=== PATIENT | female | born 1990 | race Caucasian/White ===

== ENCOUNTER 2017-01-15 11:48 | Emergency (ER) | payer MEDICAID, OTHER ==
[2017-01-15 12:07] VITALS: BMI 27.4
[2017-01-15 12:08] VITALS: O2SAT 100
[2017-01-15] MEDS ORDERED: Sodium Chloride 0.9% 1,000 ML IV ONE (12:19)
--- NOTE | 2017-01-15 12:21 | C.PDOC ---
History Of Present Illness 26 y/o female presents to the ED complaining of lower abdominal pain since yesterday. She also reports associated nausea and vomiting but denies fever, chills, diarrhea, or other complaints. Time Seen by Provider: 01/15/17 12:18 Chief Complaint (Nursing): Abdominal Pain History Per: Patient History/Exam Limitations: no limitations Onset/Duration Of Symptoms: Days (1), Gradual, Persistent Current Symptoms Are (Timing): Still Present Location Of Pain/Discomfort: Other (lower abdomen) Radiation Of Pain To:: None Associated Symptoms: Nausea, Vomiting Recent travel outside of the [place]: No Past Medical History Reviewed: Historical Data, Nursing Documentation, Vital Signs Vital Signs: Last Vital Signs Temp 98.4 F 01/15/17 12:07 Pulse 83 01/15/17 12:07 Resp 20 01/15/17 12:07 BP 113/79 01/15/17 12:07 Pulse Ox 100 01/15/17 15:20 - Medical History PMH: Arthritis, HTN, Hypothyroidism Surgical History: Cholecystectomy, Other Surgeries: tubal ligation Family History: States: No Known Family Hx - Social History Hx Tobacco Use: No Hx Alcohol Use: Yes Hx Substance Use: No - Immunization History Hx Tetanus Toxoid Vaccination: No Hx Influenza Vaccination: Yes Hx Pneumococcal Vaccination: No Review Of Systems Except As Marked, All Systems Reviewed And Found Negative. Constitutional: Negative for: Fever, Chills Gastrointestinal: Positive for: Nausea, Vomiting, Abdominal Pain (lower). Negative for: Diarrhea Genitourinary: Negative for: Dysuria, Vaginal Bleeding Physical Exam - Physical Exam Appears: Non-toxic, No Acute Distress Skin: Normal Color, Warm, Dry Head: Atraumatic, Normacephalic Eye(s): bilateral: Normal Inspection, PERRL Oral Mucosa: Moist Neck: Normal ROM, Supple Chest: Symmetrical Cardiovascular: Rhythm Regular Respiratory: Normal Breath Sounds, No Rales, No Rhonchi, No Wheezing Gastrointestinal/Abdominal: Soft, Tenderness (suprapubic), No Guarding, No Rebound Back: Normal Inspection, No CVA Tenderness Extremity: Normal ROM Neurological/Psych: Oriented x3, Normal Speech, Normal Cognition Gait: Steady ED Course And Treatment - Laboratory Results Result Diagrams: 01/15/17 12:43 01/15/17 12:43 Lab Interpretation: Normal Urine POC: Negative O2 Sat by Pulse Oximetry: 100 (ra) Pulse Ox Interpretation: Normal - CT Scan/US No standard instances Other Rad Studies (CT/US): Read By Radiologist, Radiology Report Reviewed CT/US Interpretation: FINDINGS: UTERUS: Measures 6.8 x 3.5 x 4.1 cm. Retroverted, normal in size and appearance. No fibroid or other mass lesion seen. ENDOMETRIUM: Measures 10 mm in diameter. Unremarkable. CERVIX: No cervical abnormality identified. RIGHT OVARY: Measures 3.9 x 2.3 x 3.0 cm. No solid mass. Normal flow. There is a 2.6 x 1.4 x 2.5 cm cyst with internal echoes without central flow on color Doppler imaging. LEFT OVARY: Measures 3.1 x 1.5 x 2.4 cm. No solid mass. Normal flow. FREE FLUID: There is small amount of fluid in the pelvis. OTHER FINDINGS: None. IMPRESSION: 1. 2.6 x 1.4 x 2.5 cm presumable hemorrhagic cyst in the right ovary. 2. Small amount of free fluid in the pelvis. 3. Retroverted uterus. Progress Note: Treated with IVF NSS and toradol. On re-evaluation abdomen soft , mild tenderness Reassessment Condition: Improved Medical Decision Making Medical Decision Making: Plan: * Blood Work * Urinalysis * U-Preg * Toradol IVP, IV Fluids Disposition Counseled Patient/Family Regarding: Studies Performed, Diagnosis, Need For Followup, Rx Given - Disposition Referrals: [facility] [Outside] [facility] [Outside] Disposition: HOME/ ROUTINE Disposition Time: 15:30 Condition: STABLE Additional Instructions: Return to ED if any increase symptoms Prescriptions: Naproxen [Naprosyn] 1 tab PO BID PRN #25 tab PRN Reason: Pain Instructions: Abdominal Pain (ED), Ovarian Cyst (ED) - POA Present On Arrival: None - Clinical Impression Clinical Impression: Abdominal pain, Ovarian cyst - PA / PORTRAIT STUDIO PHOTOGRAPHER / Resident Statement MD/DO has reviewed & agrees with the documentation as recorded. - Scribe Statement The provider has reviewed the documentation as recorded by the Scribe (Leonora Hoffman) All medical record entries made by the Scribe were at my direction and personally dictated by me. I have reviewed the chart and agree that the record accurately reflects my personal performance of the history, physical exam, medical decision making, and the department course for this patient. I have also personally directed, reviewed, and agree with the discharge instructions and disposition.
[2017-01-15] MEDS ORDERED: Sodium Chloride 0.9% 1,000 ML ONE (12:32)
[2017-01-15 12:46] LABS: BASO % 0.7 % (0.0-2.0); EOS % 1.1 % (0.0-4.0); HEMATOCRIT 38.9 % (34.0-47.0); LYMPH # 2.2 K/uL (1.0-4.3); MEAN CELL VOLUME 88.6 fL (81.0-99.0); MEAN CORPUSCULAR HGB CONC 32.8 g/dL (33.0-37.0); MEAN PLATELET VOLUME 8.5 fL (7.2-11.7); MONO # 0.6 K/uL (0.0-0.8); MONO % 13.6 % (0.0-10.0); RED CELL DISTRIBUTION WIDTH 12.8 % (11.5-14.5); WHITE BLOOD COUNT 4.6 K/uL (4.8-10.8)
[2017-01-15 12:53] LABS: CHLORIDE 103 mmol/L (98-107)
[2017-01-15 12:54] LABS: POTASSIUM 3.6 mmol/L (3.6-5.2); SODIUM 138 mmol/L (132-148)
[2017-01-15 12:57] LABS: ALB/GLOB RATIO 1.1 (1.0-2.1); ALKALINE PHOSPHATASE 79 U/L (38-126); ALT/SGPT 49 U/L (9-52); AST/SGOT 38 U/L (14-36); BILIRUBIN,TOTAL 0.3 mg/dL (0.2-1.3); BLOOD UREA NITROGEN 10 mg/dL (7-17); CALCIUM 9.6 mg/dl (8.6-10.4); CARBON DIOXIDE 23 mmol/L (22-30); GFR AFRICAN-AMERICAN > 60; GLUCOSE,RANDOM 85 mg/dL (65-105); TOTAL PROTEIN 8.6 g/dL (6.3-8.3)
[2017-01-15 12:57] LABS: URINE BILIRUBIN NEGATIVE (NEGATIVE); URINE BLOOD NEGATIVE (NEGATIVE); URINE GLUCOSE (UA) NORMAL (Normal); URINE KETONE NEGATIVE (NEGATIVE); URINE LEUKOCYTE ESTERASE NEG Leu/uL (Negative); URINE PROTEIN NEGATIVE (NEGATIVE); URINE UROBILINOGEN NORMAL mg/dL (0.2-1.0)
[2017-01-15 12:58] LABS: URINE COLOR YELLOW (YELLOW)
--- NOTE | 2017-01-15 15:12 | US ---
HISTORY: Abdominal pain COMPARISON: None available. TECHNIQUE: Transabdominal and transvaginal pelvic ultrasound was performed. FINDINGS: UTERUS: Measures 6.8 x 3.5 x 4.1 cm. Retroverted, normal in size and appearance. No fibroid or other mass lesion seen. ENDOMETRIUM: Measures 10 mm in diameter. Unremarkable. CERVIX: No cervical abnormality identified. RIGHT OVARY: Measures 3.9 x 2.3 x 3.0 cm. No solid mass. Normal flow. There is a 2.6 x 1.4 x 2.5 cm cyst with internal echoes without central flow on color Doppler imaging. LEFT OVARY: Measures 3.1 x 1.5 x 2.4 cm. No solid mass. Normal flow. FREE FLUID: There is small amount of fluid in the pelvis. OTHER FINDINGS: None. IMPRESSION: 1. 2.6 x 1.4 x 2.5 cm presumable hemorrhagic cyst in the right ovary. 2. Small amount of free fluid in the pelvis. 3. Retroverted uterus.
[2017-01-15 15:31] VITALS: BP 109/71; PULSE 78; RESP 18; TEMP 98.2
== END 2017-01-15 15:40 | disposition home or self-care (01) ==
LOC: C.ER 11:48
DX: N83.201 Unspecified ovarian cyst, right side (principal); R10.30 Lower abdominal pain, unspecified
CPT/HCPCS: 76830; 76856; 80053; 81001; 83690; 84703; 85025; 96361; 96374; 99284; J1885; J7040

== ENCOUNTER 2018-06-08 10:14 | Emergency (ER) | payer MEDICAID ==
[2018-06-08 10:14] VITALS: BMI 27.4
[2018-06-08 10:50] VITALS: TEMP 98.4
--- NOTE | 2018-06-08 11:26 | C.PDOC ---
Time Seen by Provider: 06/08/18 11:09 Chief Complaint (Nursing): Back Pain Past Medical History Vital Signs: Last Vital Signs Temp 98.4 F 06/08/18 10:35 Pulse 102 H 06/08/18 10:35 Resp 18 06/08/18 10:35 BP 122/88 06/08/18 10:35 Pulse Ox 100 06/08/18 10:35 - Medical History PMH: Arthritis, HTN, Hypothyroidism Surgical History: Cholecystectomy, Family History: States: Unknown Family Hx - Social History Hx Tobacco Use: No Hx Alcohol Use: Yes Hx Substance Use: No - Immunization History Hx Tetanus Toxoid Vaccination: No Hx Influenza Vaccination: Yes Hx Pneumococcal Vaccination: No ED Course And Treatment O2 Sat by Pulse Oximetry: 100 Disposition - Disposition Forms: [employer] (Sami)
--- NOTE | 2018-06-08 11:27 | C.PDOC ---
History Of Present Illness 27 year old female presents to the ED c/o new onset right lower back and leg pain for the past 1-2 weeks. Patient is s/p lumbar surgery a month ago at [facility]. Patient states she began feeling burning over the tip of the toes and the foot. Patient has chronic right leg pain that has been unchanged from pro op. Patient reports taking Naproxen for pain and rarely uses the oxycodene. Patient denies weakness, numbness, leg swelling, back pain. Time Seen by Provider: 06/08/18 11:09 Chief Complaint (Nursing): Back Pain History Per: Patient History/Exam Limitations: no limitations Onset/Duration Of Symptoms: Days Current Symptoms Are (Timing): Still Present Quality Of Discomfort: "Pain" Previous Symptoms: Back Pain, Prior Surgery Recent travel outside of the [place]: No Additional History Per: Patient Past Medical History Reviewed: Historical Data, Nursing Documentation, Vital Signs Vital Signs: Last Vital Signs Temp 98.4 F 06/08/18 10:35 Pulse 102 H 06/08/18 10:35 Resp 18 06/08/18 10:35 BP 122/88 06/08/18 10:35 Pulse Ox 100 06/08/18 12:16 - Medical History PMH: Arthritis, HTN, Hypothyroidism Surgical History: Cholecystectomy, Family History: States: Unknown Family Hx - Social History Hx Tobacco Use: No Hx Alcohol Use: Yes Hx Substance Use: No - Immunization History Hx Tetanus Toxoid Vaccination: No Hx Influenza Vaccination: Yes Hx Pneumococcal Vaccination: No Review Of Systems Constitutional: Negative for: Fever, Chills Cardiovascular: Negative for: Chest Pain, Palpitations Respiratory: Negative for: Cough, Shortness of Breath Gastrointestinal: Negative for: Nausea, Vomiting, Abdominal Pain Musculoskeletal: Positive for: Back Pain, Leg Pain Skin: Negative for: Rash Neurological: Negative for: Weakness, Numbness Physical Exam - Physical Exam Appears: Non-toxic, No Acute Distress Skin: Normal Color, Warm, Dry Head: Atraumatic, Normacephalic Eye(s): bilateral: Normal Inspection Neck: Normal ROM, Supple Chest: Symmetrical Cardiovascular: Rhythm Regular Respiratory: Normal Breath Sounds, No Rales, No Rhonchi, No Wheezing Extremity: Normal ROM, No Tenderness, Capillary Refill (< 2 seconds), No Swelling Pulses: Left Dorsalis Pedis: Normal, Right Dorsalis Pedis: Normal Neurological/Psych: Oriented x3, Normal Speech, Normal Motor, No Normal Sensation (right leg mild decrease sensation at top of toes and distal aspect of foot. Mid foot and ankle normal sensation) Gait: Steady ED Course And Treatment O2 Sat by Pulse Oximetry: 100 (ON RA) Pulse Ox Interpretation: Normal Progress - Re-Evaluation Re-evaluation Note: 06/08/18 11:17 D/W OFFICE DR JOSÉ MIGUEL SOLIS @ [facility]. PER MATHEMATICAL STATISTICIAN, PT STATED BURNING AND SWELLING, CONCERN FOR POSSIBLE DVT. PT DENIES GEN LEG SWELLING. PT ADVISED NEEDS NEURO FU, POSSIBLE MRI. PT REQUESTING VENOUS DUPLEX Medical Decision Making Medical Decision Making: Plan: * Decadron 12 mg PO * Neurontin 300 mg PO * Venous Duplex Scan Disposition Counseled Patient/Family Regarding: Studies Performed, Diagnosis, Need For Followup, Rx Given - Disposition Referrals: [facility] [Other] Disposition: HOME/ ROUTINE Disposition Time: 12:32 Condition: IMPROVED Prescriptions: Gabapentin [Neurontin] 300 mg PO TID #30 cap Instructions: Paresthesias (DC) Forms: [employer] (Yi) - Clinical Impression Clinical Impression: Paresthesia - Scribe Statement The provider has reviewed the documentation as recorded by the Scribe Tong Bradford All medical record entries made by the Scribe were at my direction and personally dictated by me. I have reviewed the chart and agree that the record accurately reflects my personal performance of the history, physical exam, medical decision making, and the department course for this patient. I have also personally directed, reviewed, and agree with the discharge instructions and disposition.
[2018-06-08 12:37] VITALS: BP 136/84; PULSE 78; RESP 16; O2SAT 98
--- NOTE | 2018-06-09 08:59 | VASCLAB ---
Date of service: 06/08/2018 PROCEDURE: Right Lower Extremity Venous Duplex Exam. HISTORY: PAIN, SWELLING PRIORS: None. TECHNIQUE: Right common femoral, femoral, popliteal and posterior tibial, peroneal and great saphenous veins were evaluated. Flow was assessed with color Doppler, compressibility, assessment of phasic flow and augmentation response. Report prepared by JOSR Flanagan FINDINGS: RIGHT: 1. Common Femoral Vein: 1.1. Compressibility - Fully compressible: Thrombus - None: Flow - Phasic: Augmentation -Normal: Reflux - None. 2. Femoral Vein: 2.1. Compressibility - Fully compressible: Thrombus - None: Flow - Phasic: Augmentation -Normal: Reflux - None. 3. Popliteal Vein: 3.1. Compressibility - Fully compressible: Thrombus - None: Flow - Phasic: Augmentation -Normal: Reflux - None. 4. Posterior Tibial Vein: 4.1. Compressibility - Fully compressible: Thrombus - None: Flow - Phasic: Augmentation -Normal: Reflux - None. 5. Peroneal Vein: 5.1. Compressibility - Fully compressible: Thrombus - None: Flow - Phasic: Augmentation -Normal: Reflux - None. 6. Great Saphenous Vein: 6.1. Compressibility - Fully compressible: Thrombus -None: Flow - Phasic: Augmentation - Normal: Reflux - None. OTHER FINDINGS: IMPRESSION: No evidence of deep or superficial vein thrombosis of the right lower extremity with excellent venous flow. Normal valve function noted of the right side. Normal venous flow noted in the left common femoral vein.
== END 2018-06-08 12:37 | disposition home or self-care (01) ==
LOC: C.ER 10:14
DX: R20.2 Paresthesia of skin (principal)
CPT/HCPCS: 93971; 99283; J8540

== ENCOUNTER 2018-07-15 08:50 | Emergency (ER) | payer MEDICAID ==
[2018-07-15 08:50] VITALS: BMI 27.4
[2018-07-15 08:59] VITALS: BP 106/72; PULSE 90; RESP 18; TEMP 98.6; O2SAT 99
--- NOTE | 2018-07-15 09:53 | C.PDOC ---
History Of Present Illness 27 y/o female presents to ED with c/o pain to right 3rd and 4th fingers for 4 days. Patient denies trauma, numbness to hand, redness or any other complaints at this time. Time Seen by Provider: 07/15/18 09:29 Chief Complaint (Nursing): Finger,Hand,&Wrist History Per: Patient History/Exam Limitations: no limitations Onset/Duration Of Symptoms: Days Current Symptoms Are (Timing): Still Present Past Medical History Reviewed: Historical Data, Nursing Documentation, Vital Signs Vital Signs: Last Vital Signs Temp 98.6 F 07/15/18 08:54 Pulse 90 07/15/18 08:54 Resp 18 07/15/18 08:54 BP 106/72 07/15/18 08:54 Pulse Ox 99 07/15/18 09:53 - Medical History PMH: Arthritis, HTN (hx of gestational), Hypothyroidism Surgical History: Back Surgery, Cholecystectomy, Family History: States: No Known Family Hx - Social History Hx Tobacco Use: No Hx Alcohol Use: Yes Hx Substance Use: No - Immunization History Hx Tetanus Toxoid Vaccination: No Hx Influenza Vaccination: Yes Hx Pneumococcal Vaccination: No Review Of Systems Musculoskeletal: Positive for: Hand Pain Skin: Negative for: Rash Neurological: Negative for: Weakness, Numbness Physical Exam - Physical Exam Appears: Non-toxic, No Acute Distress Skin: Warm, Dry, No Rash Head: Atraumatic, Normacephalic Eye(s): bilateral: Normal Inspection Oral Mucosa: Moist Extremity: Tenderness (right 3rd and 4th fingers to ROM ), Capillary Refill (<2 seconds), No Deformity Pulses: Right Radial: Normal Neurological/Psych: Oriented x3, Normal Speech, Normal Motor, Normal Sensation ED Course And Treatment O2 Sat by Pulse Oximetry: 99 (RA) Pulse Ox Interpretation: Normal - Other Rad R hand X-Ray: Interpreted by Me (neg) Medical Decision Making Medical Decision Making: no trauma ? sprain normal hand films, LOW susp of RA/autoimmune dz Disposition Doctor Will See Patient In The: Office Counseled Patient/Family Regarding: Studies Performed, Diagnosis - Disposition Referrals: Calvin Clifton MD [Medical Doctor] - Disposition: HOME/ ROUTINE Disposition Time: 09:53 Condition: GOOD Additional Instructions: continue ice packs 1/2 hour per hour, nothing hot Motrin/Advil 400 mg every 6 hours as needed Instructions: Finger Sprain (DC) Forms: [facility] (Slovak) - Clinical Impression Clinical Impression: Finger sprain - Scribe Statement The provider has reviewed the documentation as recorded by the Scribe Zoe Chase All medical record entries made by the Scribe were at my direction and personally dictated by me. I have reviewed the chart and agree that the record accurately reflects my personal performance of the history, physical exam, medical decision making, and the department course for this patient. I have also personally directed, reviewed, and agree with the discharge instructions and disposition.
--- NOTE | 2018-07-15 10:31 | RAD ---
PROCEDURE: Right Hand Radiographs. HISTORY: tender R 3/4 MCP, no trauma, ? RA COMPARISON: None. FINDINGS: BONES: Normal. No fracture. JOINTS: Normal. No osteoarthritic changes. SOFT TISSUES: Normal. OTHER FINDINGS: None. IMPRESSION: Normal right hand radiographs.
== END 2018-07-15 09:58 | disposition home or self-care (01) ==
LOC: C.ER 08:50
DX: S63.612A Unspecified sprain of right middle finger, initial encounter (principal); S63.614A Unspecified sprain of right ring finger, initial encounter; X58.XXXA Exposure to other specified factors, initial encounter; Y92.9 Unspecified place or not applicable

== ENCOUNTER 2018-11-29 08:40 | Emergency (ER) | payer MEDICAID, OTHER ==
[2018-11-29 08:57] VITALS: BP 111/72; PULSE 86; RESP 19; TEMP 98.4; O2SAT 100
--- NOTE | 2018-11-29 09:24 | C.PDOC ---
History Of Present Illness 28 year old female, otherwise well, comes in to the emergency department complaining of pain and swelling to her right palm, associated with redness and warmth. Patient denies any trauma. Reports that most of the pain is to the thenar eminence and is about 5/10. Otherwise she has no other complaints at this time. 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 Time Seen by Provider: 11/29/18 09:06 Chief Complaint (Nursing): Finger,Hand,&Wrist History Per: Patient History/Exam Limitations: no limitations Onset/Duration Of Symptoms: Days Current Symptoms Are (Timing): Still Present Past Medical History Reviewed: Historical Data, Nursing Documentation, Vital Signs Vital Signs: Last Vital Signs Temp 98.4 F 11/29/18 08:46 Pulse 86 11/29/18 08:46 Resp 19 11/29/18 08:46 BP 111/72 11/29/18 08:46 Pulse Ox 100 11/29/18 08:46 - Medical History PMH: Arthritis, HTN, Hypothyroidism Surgical History: Back Surgery, Cholecystectomy, Family History: States: No Known Family Hx - Social History Hx Tobacco Use: No Hx Alcohol Use: Yes Hx Substance Use: No - Immunization History Hx Tetanus Toxoid Vaccination: No Hx Influenza Vaccination: Yes Hx Pneumococcal Vaccination: No Review Of Systems Except As Marked, All Systems Reviewed And Found Negative. Constitutional: Negative for: Fever, Chills Musculoskeletal: Positive for: Hand Pain (Right). Negative for: Arm Pain Neurological: Negative for: Weakness, Numbness Physical Exam - Physical Exam Appears: Non-toxic, No Acute Distress Skin: Warm, Dry Head: Atraumatic, Normacephalic Eye(s): bilateral: Normal Inspection Oral Mucosa: Moist Neck: Supple Extremity: Normal ROM (Good mobility to all fingers), Capillary Refill (less than 2 seconds), No Deformity, Swelling (of thenar eminence), Other (Slightly warm but not consistent with cellulitis or infection) Neurological/Psych: Oriented x3, Normal Speech, Normal Motor, Normal Sensation, Normal Reflexes ED Course And Treatment O2 Sat by Pulse Oximetry: 100 (RA) Pulse Ox Interpretation: Normal Medical Decision Making Medical Decision Making: Plan: --Motrin 600 mg PO --Tylenol Most likely strain due to repetitive movement, consistent with texting on the phone. Patient was given a hand brace and advised to stay off the phone. Disposition Counseled Patient/Family Regarding: Diagnosis, Need For Followup, Rx Given - Disposition Referrals: Andrew Clark MD [Staff Provider] - Disposition: HOME/ ROUTINE Disposition Time: 09:21 Condition: STABLE Additional Instructions: Take Motrin for psain and swelling. Rest your hand. Avoid texting on your phone. Ice your hand after work. If not better, follow up with the hand specialist. Prescriptions: Ibuprofen [Motrin] 600 mg PO TID #15 tab Instructions: Hand Pain Forms: General Discharge Instructions, [facility] (Greek), Work Excuse - POA Present On Arrival: None - Clinical Impression Clinical Impression: Hand pain, right - Scribe Statement The provider has reviewed the documentation as recorded by the Jerzy Schuster Provider Attestation: All medical record entries made by the Murphyibsarah were at my direction and personally dictated by me. I have reviewed the chart and agree that the record accurately reflects my personal performance of the history, physical exam, medical decision making, and the department course for this patient. I have also personally directed, reviewed, and agree with the discharge instructions and disposition.
== END 2018-11-29 09:30 | disposition home or self-care (01) ==
LOC: C.ER 08:40
DX: M79.641 Pain in right hand (principal); I10 Essential (primary) hypertension; E03.9 Hypothyroidism, unspecified

== ENCOUNTER 2019-01-01 08:53 | Emergency (ER) | payer MEDICAID ==
[2019-01-01] MEDS ORDERED: Sodium Chloride 0.9% 1,000 ML IV ONE (09:22)
[2019-01-01 10:10] LABS: BASO % 0.2 % (0.0-2.0); EOS % 0.1 % (0.0-4.0); LYMPH # 1.5 K/uL (1.0-4.3); LYMPH % 18.5 % (20.0-40.0); MEAN CELL VOLUME 90.7 fL (81.0-99.0); MEAN CORPUSCULAR HEMOGLOBIN 29.5 pg (27.0-31.0); MEAN CORPUSCULAR HGB CONC 32.5 g/dL (33.0-37.0); MEAN PLATELET VOLUME 8.7 fL (7.2-11.7); MONO % 12.5 % (0.0-10.0); NEUT # 5.5 K/uL (1.8-7.0); NEUT % 68.7 % (50.0-75.0); RBC 4.08 Mil/uL (3.80-5.20); RED CELL DISTRIBUTION WIDTH 13.3 % (11.5-14.5)
[2019-01-01 10:13] LABS: HCG,QUALITATIVE URINE NEGATIVE (NEGATIVE)
[2019-01-01 10:14] LABS: WHITE BLOOD COUNT 8.1 K/uL (4.8-10.8)
[2019-01-01 10:15] LABS: SQUAMOUS EPITHIAL 5 /hpf (0-5); URINE BACTERIA RARE (<OCC); URINE BILIRUBIN NEGATIVE (NEGATIVE); URINE BLOOD NEGATIVE (NEGATIVE); URINE CLARITY Hazy (Clear); URINE COLOR Yellow (YELLOW); URINE GLUCOSE (UA) NORMAL (Normal); URINE LEUKOCYTE ESTERASE 3+ Leu/uL (Negative); URINE PROTEIN NEGATIVE (NEGATIVE); URINE UROBILINOGEN NORMAL mg/dL (0.2-1.0)
[2019-01-01 10:24] LABS: ALB/GLOB RATIO 1.3 (1.0-2.1); ALBUMIN 4.4 g/dL (3.5-5.0); ALT/SGPT 22 U/L (9-52); AST/SGOT 37 U/L (14-36); BLOOD UREA NITROGEN 6 mg/dL (7-17); CALCIUM 9.4 mg/dl (8.6-10.4); GFR NON-AFRICAN AMERICAN > 60; LIPASE 55 U/L (23-300)
--- NOTE | 2019-01-01 11:04 | C.PDOC ---
History Of Present Illness Patient is a 28 year old female, with a PSHx of cholecystectomy and ovarian cyst removal, who presents to the ED c/o constant right back pain radiating to right lower abdomen for the past 3 days. Patient states she has not her these symptoms before. She denies any associated vomiting, diarrhea, dysuria, hematuria, vaginal bleeding, or vaginal discharge. Time Seen by Provider: 01/01/19 09:07 Chief Complaint (Nursing): Back Pain History Per: Patient History/Exam Limitations: no limitations Onset/Duration Of Symptoms: Days (3) Current Symptoms Are (Timing): Still Present Quality Of Discomfort: "Pain" Recent travel outside of the [place]: No Additional History Per: Patient Past Medical History Reviewed: Historical Data, Nursing Documentation, Vital Signs Vital Signs: Last Vital Signs Temp 98.6 F 01/01/19 08:57 Pulse 93 H 01/01/19 08:57 Resp 20 01/01/19 08:57 BP 106/71 01/01/19 08:57 Pulse Ox 100 01/01/19 08:57 - Medical History PMH: Arthritis, HTN, Hypothyroidism Surgical History: Back Surgery, Cholecystectomy, Family History: States: Unknown Family Hx - Social History Hx Tobacco Use: No Hx Alcohol Use: Yes Hx Substance Use: No - Immunization History Hx Tetanus Toxoid Vaccination: No Hx Influenza Vaccination: No Hx Pneumococcal Vaccination: No Review Of Systems Gastrointestinal: Negative for: Vomiting, Diarrhea Genitourinary: Negative for: Dysuria, Hematuria, Vaginal Discharge, Vaginal Bleeding Musculoskeletal: Positive for: Back Pain (right lower back pain radiating to right lower abdomen) Physical Exam - Physical Exam Appears: Non-toxic, Other (mild to moderate pain ) Skin: Normal Color, Warm, Dry Head: Atraumatic, Normacephalic Neck: Supple Chest: Symmetrical, No Deformity Cardiovascular: Rhythm Regular Respiratory: Normal Breath Sounds, No Rales, No Rhonchi, No Wheezing Gastrointestinal/Abdominal: Tenderness (RLQ and mild suprapubic ), Other (negative Coley's. Healed laproscopic surgical scars ) Back: No CVA Tenderness Neurological/Psych: Oriented x3, Normal Speech ED Course And Treatment - Laboratory Results Result Diagrams: 01/01/19 09:45 01/01/19 09:45 Lab Results: Total Bilirubin 0.7 mg/dL (0.2-1.3) 01/01/19 09:45 AST 37 U/L (14-36) H D 01/01/19 09:45 ALT 22 U/L (9-52) 01/01/19 09:45 Alkaline Phosphatase 115 U/L (38-126) 01/01/19 09:45 Total Protein 7.9 g/dL (6.3-8.3) 01/01/19 09:45 Albumin 4.4 g/dL (3.5-5.0) 01/01/19 09:45 Globulin 3.5 gm/dL (2.2-3.9) 01/01/19 09:45 Albumin/Globulin Ratio 1.3 (1.0-2.1) 01/01/19 09:45 Lipase 55 U/L (23-300) 01/01/19 09:45 Urine Color Yellow (YELLOW) 01/01/19 09:45 Urine Clarity Hazy (Clear) 01/01/19 09:45 Urine pH 6.0 (5.0-8.0) 01/01/19 09:45 Ur Specific [place] 1.010 (1.003-1.030) 01/01/19 09:45 Urine Protein Negative mg/dL (NEGATIVE) 01/01/19 09:45 Urine Glucose (UA) Normal mg/dL (Normal) 01/01/19 09:45 Urine Ketones Negative mg/dL (NEGATIVE) 01/01/19 09:45 Urine Blood Negative (NEGATIVE) 01/01/19 09:45 Urine Nitrate Negative (NEGATIVE) 01/01/19 09:45 Urine Bilirubin Negative (NEGATIVE) 01/01/19 09:45 Urine Urobilinogen Normal mg/dL (0.2-1.0) 01/01/19 09:45 Ur Leukocyte Esterase 3+ Kimberlyn/uL (Negative) H 01/01/19 09:45 Urine WBC (Auto) 42 /hpf (0-5) H 01/01/19 09:45 Urine RBC (Auto) 3 /hpf (0-3) 01/01/19 09:45 Ur Squamous Epith Cells 5 /hpf (0-5) 01/01/19 09:45 Urine Bacteria Rare (<OCC) 01/01/19 09:45 Urine Yeast (Budding) Few /hpf (NEGATIVE) H 01/01/19 09:45 Urine HCG, Qual Negative (NEGATIVE) 01/01/19 09:45 Urine HCG, Qual Negative (NEGATIVE) 01/01/19 09:45 O2 Sat by Pulse Oximetry: 100 (on RA) Pulse Ox Interpretation: Normal - CT Scan/US CT ABD/PELVIS Other Rad Studies (CT/US): Read By Radiologist, Radiology Report Reviewed CT/US Interpretation: Accession No. : [id number]. Patient Name / ID : ROSE MARIE LEWIS / [id number]. Exam Date : 01/01/2019 10:57:49 ( Approved ). Study Comment : Sex / Age : F / 28Y. Creator : Randa Keller. Dictator : Oscar De Santiago MD. Internal Medicine Physician : Segment Block Layer : Oscar De Santiago MD. Approver2 : Report Date : 01/01/2019 11:14:59. My Comment : . Date of service: 01/01/2019. PROCEDURE: CT Abdomen and Pelvis without intravenous contrast. HISTORY: rlq pain r/o appy vs kidney stone. COMPARISON: Comparison is made to the previous study dated 12/29/2015. TECHNIQUE: Axial and reformatted coronal and sagittal CT images of the abdomen and pelvis were obtained without IV or oral contrast administration.. Contrast dose: 0. Radiation dose: Total exam DLP = 596.38 mGy-cm. This CT exam was performed using one or more of the following dose reduction techniques: Automated exposure control, adjustment of the mA and/or kV according to patient size, and/or use of iterative reconstruction technique. FINDINGS: LOWER THORAX: Unremarkable. LIVER: Mild hepatomegaly is again noted. GALLBLADDER AND BILE DUCTS: Status post cholecystectomy. PANCREAS: Unremarkable. No gross lesion or ductal dilatation. SPLEEN: Unremarkable. ADRENALS: Unremarkable. No mass. KIDNEYS AND URETERS: Slightly dilated collecting system of both kidneys right more than left. No definite evidence of obstructing ureteral stone. VASCULATURE: Unremarkable. No aortic aneurysm. No aortic atherosclerotic calcification or mural plaque present. BOWEL: Unremarkable. No obstruction. No gross mural thickening. APPENDIX: No evidence of acute nati endicitis. PERITONEUM: Unremarkable. No free fluid. No free air. LYMPH NODES: Unremarkable. No enlarged lymph nodes. BLADDER: Unremarkable. REPRODUCTIVE: Unremarkable. BONES: No acute fracture. OTHER FINDINGS: None. IMPRESSION: No evidence of acute appendicitis. Slightly dilated collecting system of both kidneys right more than left without definite evidence of obstructing ureteral stone. Progress Note: Plan: CAT A&P. Bloodwork. Urinalyiss HCG. Urinalysis. IV Fluids. Toradol 30mg IVP Disposition Counseled Patient/Family Regarding: Diagnosis, Need For Followup, Rx Given - Disposition Referrals: Calvin Clifton MD [Medical Doctor] - Disposition: HOME/ ROUTINE Disposition Time: 12:05 Condition: STABLE Additional Instructions: FOLLOW UP WITH YOUR DOCTOR IN 1-2 DAYS USE MEDICATIONS DIRECTED RETURN TO ER IF SYMPTOMS WORSEN Prescriptions: Naproxen 375 mg PO BID PRN #20 tablet PRN Reason: pain Nitrofurantoin Macrocrystals [Macrobid] 1 cap PO BID #14 cap Instructions: Urinary Tract Infection, Adult (DC) Forms: [employer] (Luxembourgish) Print Language: YAKUT - Clinical Impression Clinical Impression: UTI (urinary tract infection) - Scribe Statement The provider has reviewed the documentation as recorded by the Jerzy Gamez All medical record entries made by the Murphyibsarah were at my direction and personally dictated by me. I have reviewed the chart and agree that the record accurately reflects my personal performance of the history, physical exam, medical decision making, and the department course for this patient. I have also personally directed, reviewed, and agree with the discharge instructions and disposition.
--- NOTE | 2019-01-01 11:41 | CT ---
Date of service: 01/01/2019 PROCEDURE: CT Abdomen and Pelvis without intravenous contrast HISTORY: rlq pain r/o appy vs kidney stone COMPARISON: Comparison is made to the previous study dated 12/29/2015 TECHNIQUE: Axial and reformatted coronal and sagittal CT images of the abdomen and pelvis were obtained without IV or oral contrast administration.. Contrast dose: 0 Radiation dose: Total exam DLP = 596.38 mGy-cm. This CT exam was performed using one or more of the following dose reduction techniques: Automated exposure control, adjustment of the mA and/or kV according to patient size, and/or use of iterative reconstruction technique. FINDINGS: LOWER THORAX: Unremarkable. LIVER: Mild hepatomegaly is again noted. GALLBLADDER AND BILE DUCTS: Status post cholecystectomy. PANCREAS: Unremarkable. No gross lesion or ductal dilatation. SPLEEN: Unremarkable. ADRENALS: Unremarkable. No mass. KIDNEYS AND URETERS: Slightly dilated collecting system of both kidneys right more than left. No definite evidence of obstructing ureteral stone. VASCULATURE: Unremarkable. No aortic aneurysm. No aortic atherosclerotic calcification or mural plaque present. BOWEL: Unremarkable. No obstruction. No gross mural thickening. APPENDIX: No evidence of acute appendicitis. PERITONEUM: Unremarkable. No free fluid. No free air. LYMPH NODES: Unremarkable. No enlarged lymph nodes. BLADDER: Unremarkable. REPRODUCTIVE: Unremarkable. BONES: No acute fracture. OTHER FINDINGS: None. IMPRESSION: No evidence of acute appendicitis. Slightly dilated collecting system of both kidneys right more than left without definite evidence of obstructing ureteral stone.
[2019-01-01 11:50] VITALS: BP 97/67; PULSE 68; RESP 18; TEMP 97.6
[2019-01-01 12:03] VITALS: O2SAT 100
== END 2019-01-01 12:35 | disposition home or self-care (01) ==
LOC: C.ER 08:53
DX: N39.0 Urinary tract infection, site not specified (principal)
CPT/HCPCS: 74176; 80053; 81001; 83690; 84703; 85025; 87086; 87181; 96361; 96374; 99284; J1885; J7030

== ENCOUNTER 2019-02-18 07:41 | Emergency (ER) | payer MEDICAID | END 2019-02-18 10:20 | disposition home or self-care (01) | LOC: C.ER 07:41 | CPT/HCPCS: 81025; 96361; 96374; 96375; 99284; J1885; J2405; J7030 ==